=== PATIENT | female | born 1985 | race Caucasian/White ===

== ENCOUNTER 2022-06-17 15:30 | Inpatient (IN) | payer SELFPAY ==
[2022-06-17] MEDS: midazolam 1 mg/mL INJ 2 mL 2 MG (15:49)
[2022-06-17] MEDS: ziprasidone 20 mg/mL SDV (15:49)
[2022-06-17] MEDS: diphenhydrAMINE 50 mg/mL SDV 1mL (15:49)
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
--- NOTE | 2022-06-17 15:53 | ECG_ITS ---
[facility] Test Date: 2022-06-17 Pat Name: Cathy Hagan Department: Room: Gender: Female Senior Cost Accountant: : 1985 Requested By: Cristóbal Clinton Order Number: [id number] Jacqueline MD: Laila Petty M.D. Measurements Intervals [place] Rate: 83 P: 55 IN: 144 QRS: 57 QRSD: 91 T: 55 QT: 362 QTc: 427 Interpretive Statements SINUS RHYTHM MODERATE ST DEPRESSION [0.05+ mV ST DEPRESSION] INTERPRETATION BASED ON A DEFAULT AGE OF 40 YEARS No previous ECG available for comparison Electronically Signed On 06-18-2022 21:39:49 CDT by Laila Petty M.D. [email or web address]
[2022-06-17 16:07] VITALS: BP 107/54; PULSE 95; RESP 18; TEMP 36.6; O2SAT 97; BMI 28.3
[2022-06-17 16:07] LABS: Basophils # 0.1 10^3/uL (0.0-0.1); Basophils % 0.9 %; Eosinophils # 0.1 10^3/uL (0.0-0.8); Eosinophils % 0.9 %; Hematocrit 45.3 % (37.0-47.0); Hemoglobin 15.2 g/dL (11.5-15.3); Lymphocytes # 3.9 10^3/uL (0.8-4.8); Lymphocytes % 43.5 %; Mean Corpuscular HGB Conc 33.6 g/dL (30.0-36.0); Mean Corpuscular Hemoglobin 29.7 pg (28.0-34.0); Mean Corpuscular Volume 88.5 fl (81-99); Mean Platelet Volume 10.6 fL (7.4-10.4); Monocytes # 0.6 10^3/uL (0.2-0.9); Monocytes % 6.3 %; Neutrophils # 4.28 10^3/uL (1.8-7.7); Neutrophils % 47.6 %; Nucleated Red Blood Cells % 0 %; Platelet Count 254 10^3/cmm (130-400); Red Blood Count 5.12 10^6/uL (4.1-5.3); Red Cell Distribution Width 14.4 % (12.1-15.1)
[2022-06-17 17:10] LABS: Alanine Aminotransferase 12 U/L (0-33); Albumin Level 4.2 g/dL (3.5-5.2); Alcohol Level 155 mg/dL (0-10); Alkaline Phosphatase 76 U/L (35-105); Anion Gap 17.5 (5-19); Aspartate Amino Transferase 13 U/L (0-32); Blood Urea Nitrogen 9 mg/dL (6-20); Calcium 9.2 mg/dL (8.5-10.5); Carbon Dioxide 20 mmol/L (22-29); Chloride 109 mmol/L (98-107); Creatinine Clr Calc Pharmacy 125.9502; Globulin 3.3 g/dL (1.3-4.6); Glomerular Filtration Rate 111.9 mL/min (90-130); Glucose 91 mg/dL (65-115); Osmolality Calculated 294 mOsm/kg (285-295); Potassium 3.5 mmol/L (3.5-5.1); Sodium 143 mmol/L (136-145); Total Bilirubin 0.2 mg/dL (0.15-1.2); Total Protein 7.5 g/dL (6.6-8.7)
[2022-06-17 17:11] LABS: Acetaminophen < 5.0 ug/mL (10-30); Salicylate < 0.3 mg/dL (3-10)
[2022-06-17 18:21] VITALS: BP 98/64; PULSE 69; RESP 18; O2SAT 94
[2022-06-18 04:00] VITALS: PULSE 88; RESP 16; O2SAT 98
[2022-06-18 06:00] VITALS: PULSE 80; RESP 15; O2SAT 100
[2022-06-18 06:45] LABS: Amphetamines Screen Urine Negative (Negative); Barbiturates Screen Urine Negative (Negative); Benzodiazepines Screen Urine Negative (Negative); Cocaine Screen Urine Negative (Negative); Opiate Screen Urine Negative (Negative); PCP Screen Urine Negative (Negative); THC Screen Urine Negative (Negative)
--- NOTE | 2022-06-18 06:59 | PC.NURSE ---
pt resting in bed, appears asleep. remains in line of sight of sitter
[2022-06-18 07:28] LABS: Bilirubin Urine Neg (Negative); Blood Urine Trace (Negative); Glucose Urine UA Norm (Normal); Ketones Urine 1+ (Negative); Nitrate Urine Negative (Negative); Protein Urine Neg (Negative); Specific Gravity, Urine 1.025 (1.005-1.030); Urine Appearance Cloudy (CLEAR); Urine Color Yellow (Yellow); Urobilinogen Urine Norm (Negative); pH Urine 5 (5-7)
[2022-06-18 07:29] LABS: Add Urine Microscopic? YES; Leukocyte Esterase Urine Trace (Negative); RBC Urine 0-4 /hpf (0-2)
[2022-06-18 07:30] LABS: Add Urine Culture? No; Bacteria Urine 1+ /hpf; Calcium Oxalate Crystals Urine 0-4 /hpf; Mucus Urine 3+ /hpf
--- NOTE | 2022-06-18 09:02 | PC.NURSE ---
pt sleeping in bed, food tray brought for pt. remains in line of sight of abbe
[2022-06-18 10:27] VITALS: BP 96/72; PULSE 98; RESP 16; O2SAT 97
--- NOTE | 2022-06-18 10:32 | PC.NURSE ---
pt awake, breakfast tray warmed up and given to pt. remains in line of sight of sitter
--- NOTE | 2022-06-18 10:41 | PC.NURSE ---
pt laying back down, lights dimmed. remains in line of sight of sitter
[2022-06-18 15:45] VITALS: BP 109/66; PULSE 84; RESP 16; O2SAT 97
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
[2022-06-18 20:06] VITALS: BP 135/90; PULSE 83; RESP 16; TEMP 36.7; O2SAT 96
[2022-06-18] MEDS: hyDROXYzine 25 mg Capsule 50 MG PO (21:24)
[2022-06-18] MEDS: trazodone 50 mg Tablet PO (21:25)
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
[2022-06-19] MEDS: thiamine 100 mg Tablet PO (09:01)
[2022-06-19] MEDS: multivitamin therapeutic Tablet 1 TAB PO (09:01)
[2022-06-19] MEDS: folic acid 1 mg Tablet PO (09:01)
--- NOTE | 2022-06-19 09:01 | PC.OT ---
OT EVALUATION ORDERS RECEIVED. PER NURSING; HOLD OT EVALUATION AT THIS TIME.
[2022-06-19] MEDS: ibuprofen 600 mg Tablet PO ×2 (11:22→20:23)
[2022-06-19] MEDS: LORazepam 2 mg/mL INJ 1 mL IM (12:05)
--- NOTE | 2022-06-19 12:11 | PC.NURSE ---
PT SCORED 12 ON SWIA, REQUESTED IM ATIVAN VS PO. PT COMPLAINED OF DISCOMFORT, DIAPHORESIS, LIGHT SENSITIVITY, TREMORS, AND HEADACHE WITH SLIGHT NAUSEA.
[2022-06-19 14:00] VITALS: BP 114/77; PULSE 91; RESP 18; TEMP 36.6; O2SAT 97
[2022-06-19] MEDS: LORazepam 2 mg Tablet PO (19:58)
[2022-06-19] MEDS: OLANZapine 5 mg ODT PO (20:01)
[2022-06-19 20:11] VITALS: BP 103/67; PULSE 87; RESP 18; O2SAT 98
[2022-06-19] MEDS: trazodone 50 mg Tablet PO (20:23)
[2022-06-19] MEDS: hyDROXYzine 25 mg Capsule 50 MG PO (20:23)
[2022-06-19] MEDS: lidocaine 2% viscous 15 mL UDC 30 ML MUCOUS MEM (20:25)
[2022-06-20 06:00] VITALS: RESP 16
[2022-06-20] MEDS: multivitamin therapeutic Tablet 1 TAB PO (08:58)
[2022-06-20] MEDS: folic acid 1 mg Tablet PO (08:58)
[2022-06-20] MEDS: hyDROXYzine 25 mg Capsule 50 MG PO ×2 (08:58→14:34)
[2022-06-20] MEDS: thiamine 100 mg Tablet PO (08:58)
[2022-06-20] MEDS: nicotine 21 mg Patch 1 PATCH TRANSDERMA (11:02)
[2022-06-20] MEDS: nicotine 2 mg Gum BUCCAL (13:23)
[2022-06-20] MEDS: ibuprofen 600 mg Tablet PO (14:01)
[2022-06-20 15:14] VITALS: BP 130/66; PULSE 108; RESP 18; TEMP 36.7; O2SAT 96
--- NOTE | 2022-06-20 16:49 | W.PM.NPUPNS ---
Subjective NPU Subjective: Patient presents today seemingly guarded in conversation. Reporting that her thoughts to jump from a bridge to a train which is a fun thing to do. Extended time reporting that she is fine and not needing any inpatient hospitalization and wanted to be discharged to her boyfriend reporting that eventually she will return to [place]. The previous discussion had been her eventually leading into the unit and going directly to [place] with the plan for her to avoid her father losing his home reportedly due to her missing court after he put his house up for collateral for her bland. She reports that that has been released. We really would research this and get the actual situation and work with her on medications and appropriate discharge after her psychosis has resolved and she is without credible lethality Mental Status Exam MSE Comments: This is an overweight versus obese white female in hospital scrubs with limited grooming and eye contact. No abnormal movements except for mild psychomotor agitation. Mostly cooperative with exam in mild to moderate distress. Speech was normal rate and decreased volume. Mood described as fine affect. Thought process linear. Thought content: Patient denied suicidal or homicidal ideation but had odd explanations for her dangerous behavior, there were no delusions reported with paranoia and persecutory thinking noted, she denied auditory or visual hallucinations. Attention and concentration were intact and memory was unreliable but none were formally tested. She was alert and oriented x3. Insight and judgment were impaired and impulse control was poor. Vitals/I&O/Wt Last Vital Signs Temp 98.1 F 06/20/22 15:14 Pulse 108 H 06/20/22 15:14 Resp 18 06/20/22 15:14 BP 130/66 06/20/22 15:14 Pulse Ox 96 06/20/22 15:14 O2 Del Method 06/20/22 15:14 Data NPU : 06/17/22 15:54 06/17/22 16:34 A&P Assessment and plan (1) Drug-induced psychotic disorder: (2) Depression: (3) Suicidal ideation: Plan Patient is a 36-year-old white female with a history of multiple inpatient hospitalizations with reports of suicide attempts admitted after a significantly dangerous episode of jumping onto a train car from a bridge. Patient appears compliant and we will monitor the patient closely for any evidence of any depression. The patient does appear to have significant trauma history and PTSD may be chronically present as well. 1. We will attempt to gather collateral information?in regards to medication. Recommend antipsychotic. 2.? Encourage individual, group and milieu therapy 3.? Continue q-15 minute check for safety 4.? Recommend sober living treatment at the highest level of care to which the patient is willing to commit. Involuntary Hold Information 96 Hour Hold: 96 Hour Involuntary Admission: Yes 96 Hour Hold Ending Date: 06/24/22 96 Hour Hold Ending Time: 18:05 Attestations NPU Medical Necessity Statement*: Inpatient hospitalization is medically necessary and the clinically appropriate intervention at this time. We will initiate/monitor medications and make changes as indicated. She will hospital for over 2 midnights. Likely length of stay 3 to 5 days. Coding Level of Care Code Acute Hospitalist Program Director for [place] Cherry Diagnoses Drug-induced psychotic disorder F19.959 Depression F32.A Suicidal ideation R45.854
[2022-06-20] MEDS: OLANZapine 5 mg ODT PO (16:53)
[2022-06-20] MEDS: lidocaine 2% viscous 15 mL UDC 30 ML MUCOUS MEM (18:38)
[2022-06-20 20:05] VITALS: BP 107/65; PULSE 110; RESP 18; TEMP 37; O2SAT 93
[2022-06-20] MEDS: trazodone 50 mg Tablet PO (20:42)
[2022-06-20] MEDS: acetaminophen 325 mg Tablet 650 MG PO (21:48)
[2022-06-20] MEDS: ondansetron 4 MG Tablet PO (21:50)
[2022-06-20] MEDS: LORazepam 2 mg Tablet PO (21:50)
[2022-06-21 06:00] VITALS: BP 109/69; PULSE 82; RESP 17; TEMP 36.3; O2SAT 94
[2022-06-21] MEDS: ibuprofen 600 mg Tablet PO ×2 (06:01→16:04)
[2022-06-21] MEDS: LORazepam 2 mg Tablet PO (08:48)
[2022-06-21] MEDS: hyDROXYzine 25 mg Capsule 50 MG PO (08:48)
[2022-06-21] MEDS: multivitamin therapeutic Tablet 1 TAB PO (08:48)
[2022-06-21] MEDS: folic acid 1 mg Tablet PO (08:48)
[2022-06-21] MEDS: thiamine 100 mg Tablet PO (08:48)
[2022-06-21] MEDS: nicotine 2 mg Gum BUCCAL (08:50)
[2022-06-21] MEDS: ondansetron 4 MG Tablet PO (09:48)
[2022-06-21] MEDS: nicotine 21 mg Patch 1 PATCH TRANSDERMA (10:07)
[2022-06-21 14:00] VITALS: BP 102/65; PULSE 106; RESP 18; TEMP 36.6; O2SAT 96
[2022-06-21] MEDS: diphenhydrAMINE 50 mg/mL SDV 1mL IM (14:28)
[2022-06-21] MEDS: haloperidol inj 5 mg/mL INJ 1 mL IM (14:28)
[2022-06-21] MEDS: LORazepam 2 mg/mL INJ 1 mL IM (14:29)
[2022-06-21] MEDS: acetaminophen 325 mg Tablet 650 MG PO (16:03)
--- NOTE | 2022-06-21 17:20 | W.PM.NPUPNS ---
Subjective NPU Subjective: Patient presents today seeming to be more transparent in conversation. She continued to be somewhat ambivalent about returning to [place], but reported a plan to take the ticket and go back to [place] to face her charges. We discussed the possibility of releasing her over the next 48 hours if she continues to improve. She is eating and sleeping better. Mental Status Exam MSE Comments: This is an overweight versus obese white female in hospital scrubs with limited grooming and eye contact. No abnormal movements except for some possible oral/facial eps. Mostly cooperative with exam in mild distress. Speech was normal rate and decreased volume. Mood described as better affect congruent. Thought process linear. Thought content: Patient denied suicidal or homicidal ideation but had odd explanations for her dangerous behavior, there were no delusions reported with paranoia and persecutory thinking noted, she denied auditory or visual hallucinations. Attention and concentration were intact and memory was unreliable but none were formally tested. She was alert and oriented x3. Insight and judgment were limited and impulse control was improving. Vitals/I&O/Wt Last Vital Signs Temp 98.4 F 06/21/22 22:00 Pulse 83 06/21/22 22:00 Resp 16 06/21/22 22:00 BP 107/70 06/21/22 22:00 Pulse Ox 95 06/21/22 22:00 O2 Del Method 06/21/22 22:00 Data NPU : 06/17/22 15:54 06/17/22 16:34 A&P Assessment and plan (1) Drug-induced psychotic disorder: (2) Depression: (3) Suicidal ideation: Plan Patient is a 36-year-old white female with a history of multiple inpatient hospitalizations with reports of suicide attempts admitted after a significantly dangerous episode of jumping onto a train car from a bridge. Patient appears compliant and we will monitor the patient closely for any evidence of any depression. The patient does appear to have significant trauma history and PTSD may be chronically present as well. 1. We will attempt to gather collateral information?in regards to medication. Recommend antipsychotic. 2.? Encourage individual, group and milieu therapy 3.? Continue q-15 minute check for safety 4.? Recommend sober living treatment at the highest level of care to which the patient is willing to commit. 5. Possible discharge back [facility] tomorrow with him providing the bus ticket back to [place]. Involuntary Hold Information 96 Hour Hold: 96 Hour Involuntary Admission: Yes 96 Hour Hold Ending Date: 06/24/22 96 Hour Hold Ending Time: 18:05 Attestations NPU Medical Necessity Statement*: Inpatient hospitalization is medically necessary and the clinically appropriate intervention at this time. We will initiate/monitor medications and make changes as indicated. Likely length of stay 1-3 days. Coding Level of Care Code Acute Certified Juvenile Probation Officer for [place] Vierad Diagnoses Drug-induced psychotic disorder F19.959 Depression F32.A Suicidal ideation R45.851
[2022-06-21] MEDS: trazodone 50 mg Tablet PO (20:04)
[2022-06-21 22:00] VITALS: BP 107/70; PULSE 83; RESP 16; TEMP 36.9; O2SAT 95
[2022-06-22] MEDS: lidocaine 2% viscous 15 mL UDC 30 ML MUCOUS MEM (06:42)
[2022-06-22] MEDS: multivitamin therapeutic Tablet 1 TAB PO (08:08)
[2022-06-22] MEDS: folic acid 1 mg Tablet PO (08:08)
[2022-06-22] MEDS: thiamine 100 mg Tablet PO (08:08)
[2022-06-22] MEDS: acetaminophen 325 mg Tablet 650 MG PO (08:08)
[2022-06-22] MEDS: ibuprofen 600 mg Tablet PO (08:34)
[2022-06-22] MEDS: nicotine 2 mg Gum BUCCAL (10:40)
[2022-06-22] MEDS: hyDROXYzine 25 mg Capsule 50 MG PO (11:16)
[2022-06-22 11:43] VITALS: BP 110/68; PULSE 88; RESP 16; TEMP 36.9; O2SAT 98
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
== END 2022-06-22 12:05 | disposition home or self-care (01) | DRG 897 ==
LOC: ER 06-18 15:56 → NP 06-18 16:40
PROVIDERS: Admitting Provider Psychiatry & Neurology Psychiatry; Emergency Provider Family Medicine; Visit Provider Psychiatry & Neurology Psychiatry
DX: F15.959 Other stimulant use, unspecified with stimulant-induced psychotic disorder, unspecified (principal); R45.851 Suicidal ideations; F10.929 Alcohol use, unspecified with intoxication, unspecified; Y90.6 Blood alcohol level of 120-199 mg/100 ml; F32.A Depression, unspecified
CPT/HCPCS: 80053; 80306; 80307; 81001; 85025; 93005; 96372; 97165; 99285; J1200; J1630; J2060; J2250; J3486; Q0162